=== PATIENT | female | born 1940 | race Caucasian/White ===

== ENCOUNTER 2021-07-15 06:30 | Day surgery (SDC) | payer MEDICARE ==
[~2021-07-15] VITALS: Ht 152.4 cm; Wt 68.1 kg
[2021-07-15] MEDS ORDERED: LATANOPROST OP (07:19)
[2021-07-15] MEDS ORDERED: AMLODIPINE BESYLATE PO (07:19)
[2021-07-15] MEDS ORDERED: POTASSIUM PO (07:19)
[2021-07-15] MEDS ORDERED: normal saline 1000ml 1,000 ML IV SCH (07:20)
[2021-07-15 07:30] VITALS: BP 154/73
[2021-07-15] MEDS ORDERED: LIDOcaine 1% 30ml preserv. free vial IJ STA (09:26)
[2021-07-15] MEDS ORDERED: iohexol 300 MG/1 ML 50ml polymer ONE (10:28)
[2021-07-15] MEDS ORDERED: diphenhydrAMINE 50 mg/ml inj ONE (10:44)
[2021-07-15] MEDS ORDERED: fentaNYL/PF 50MCG/1 ML 2ML syringe ONE (10:55)
[2021-07-15 11:19] VITALS: BP 136/62
[2021-07-15 11:34] VITALS: BP 136/59
[2021-07-15 12:04] VITALS: BP 124/53
[2021-07-15 12:16] VITALS: BP 128/55
== END 2021-07-15 12:30 | disposition home or self-care (01) ==
LOC: SSTAY O 06:30 → EDSTATUS 08:30 → SSTAY O 12:30
PROVIDERS: ATTEND Preventive Medicine Aerospace Medicine
DX: Z43.6 Encounter for attention to other artificial openings of urinary tract (principal); Z20.822 Contact with and (suspected) exposure to COVID-19; Z85.51 Personal history of malignant neoplasm of bladder; Z98.890 Other specified postprocedural states
CPT/HCPCS: 50435; 87635; C1769; C2617; C9803; J1200; J3010; J7030; Q9967; 50387

== ENCOUNTER 2021-08-19 07:16 | Day surgery (SDC) | payer MEDICARE ==
[2021-08-12 14:57] LABS: BASOPHILS # (AUTO) 0.1 X10'3 (0-0.2); BASOPHILS % (AUTO) 0.2 % (0-1); EOSINOPHILS % (AUTO) 0.1 % (0-6); LYMPHOCYTES # (AUTO) 0.8 X10'3 (1.1-4.8); LYMPHOCYTES % (AUTO) 2.8 % (21-51); MEAN CORPUSCULAR HEMOGLOBIN 28.7 PG (27.0-31.0); MEAN CORPUSCULAR HGB CONC 33.3 g/dL (33.0-36.5); MEAN PLATELET VOLUME 7.4 FL (7.4-10.4); MONOCYTES # (AUTO) 0.2 X10'3 (0-0.9); MONOCYTES % (AUTO) 0.8 % (2-12); NEUTROPHILS # (AUTO) 27.6 X10'3 (1.8-7.7); NEUTROPHILS % (AUTO) 96.1 % (42-75); PRE OP HEMATOCRIT 22.7 % (35.0-45.0); PRE OP PLATELET COUNT 229 X10'3 (140-440); RED BLOOD COUNT 2.64 X10'6 (4.20-5.60); RED CELL DISTRIBUTION WIDTH 13.5 % (11.5-14.5)
[2021-08-12 15:05] LABS: PRE OP HEMOGLOBIN 7.6 g/dL (12.0-16.0)
[2021-08-12 15:11] LABS: ALBUMIN 2.9 G/DL (3.4-5.0); ALBUMIN/GLOBULIN RATIO 0.7 (1.1-1.5); ALKALINE PHOSPHATASE 108 IU/L (46-116); BLOOD UREA NITROGEN 19 MG/DL (7-18); BUN/CREATININE RATIO 20.4 (6.6-38.0); CALCIUM 9.1 MG/DL (8.5-10.1); CHLORIDE 103 MMOL/L (99-107); CREATININE 0.93 MG/DL (0.40-0.90); PRE OP ALT 49 U/L (30-65); PRE OP ANION GAP 14 (8-16); PRE OP AST 38 U/L (10-37); PRE OP BILIRUB, TOTAL 0.3 MG/DL (0.0-1.0); PRE OP GLUCOSE 101 MG/DL (70-104); PRE OP SODIUM 140 MMOL/L (135-145); TOTAL CARBON DIOXIDE 23.2 MMOL/L (24-32); TOTAL PROTEIN 7.1 G/DL (6.4-8.2); eGFR 58 ML/MIN
[2021-08-12 15:25] LABS: TOTAL CELLS COUNTED 100
[2021-08-12 15:26] LABS: HYPERSEGMENTED NEUTROPHILS 2+
[2021-08-12 15:32] LABS: PLATELET ESTIMATE NORMAL; ROULEAUX 1+; TOXIC GRANULATION 1+
[2021-08-19] VITALS (11 sets, daily range): BP systolic 113–151; BP diastolic 57–70
[~2021-08-19] VITALS: Ht 152.4 cm; Wt 66.0 kg
[~2021-08-19 07:16] MED LIST: AMLO5TAB16 PO; ONDA-104 PO; POTA-192 PO; PROC10TA10 PO; famotidine 20mg tablet PO ONE; ringers solution, lacted 1,000 ML IV SCH
[2021-08-19] MEDS ORDERED: ceFAZolin 2gm in dextrose, iso 50 ML IV ONE (07:35)
[2021-08-19] MEDS ORDERED: morphine 2 MG/ML inj. syringe IV PRN (09:35)
[2021-08-19] MEDS ORDERED: hydrALAZINE 20mg/ml inj. IV PRN (09:35)
[2021-08-19] MEDS ORDERED: morphine 4 MG/ML inj SYRINge IV PRN (09:35)
[2021-08-19] MEDS ORDERED: ringers solution, lacted 1,000 ML IV SCH (09:35)
[2021-08-19] MEDS ORDERED: fentaNYL/PF 50MCG/1 ML 2ML syringe IV PRN ×2 (09:35)
[2021-08-19] MEDS ORDERED: ondansetron/PF 4mg/2ml inj IV PRN (09:35)
[2021-08-19] MEDS ORDERED: labetalol 20mg/4ml (5mg/ml) syringe IV PRN (09:35)
[2021-08-19] MEDS ORDERED: iohexol 300 MG/1 ML 50ml polymer ONE (11:38)
[2021-08-19] MEDS ORDERED: midazolam 1 mg/ML 2ml injection ONE (11:55)
[2021-08-19] MEDS ORDERED: FENTANYL CITRATE/PF 50 MCG/1 ML VIAL ONE (11:55)
[2021-08-19] MEDS ORDERED: LIDOcaine 2% (20mg/ml) 5ml vial ONE (12:02)
[2021-08-19] MEDS ORDERED: ondansetron/PF 4mg/2ml inj ONE (12:02)
[2021-08-19] MEDS ORDERED: propofol inj 20 ML IV ONE (12:02)
--- NOTE | 2021-08-19 12:51 | NUR ---
Received from OR via [facility] , accompanied by Anesthesiologist DR ARNOLD and report given by Anesthesiolgist. PT PRESENTS WITH 20G LEFT AC, VSS. Addendum: 08/19/21 at 1302 by Keyla Pierre RN, RN Amended: Links added.
--- NOTE | 2021-08-19 14:01 | NUR ---
PATIENT HAS MET ALL CRITERIA FOR DC. IV DC'D WITH CATHEER INTACT. DC INSTRUCTIONS REVIEWED WITH PT, PT VERBALIZED UNDERSTANDING WITH NO FURTHER QUESTIONS AT THIS TIME. PT WHEELED OUT OF HOSPITAL WHERE DROVE PT HOME. Addendum: 08/19/21 at 1536 by Keyla Pierre RN, RN Amended: Links added.
== END 2021-08-19 14:01 | disposition home or self-care (01) ==
LOC: PAS 07:16
PROVIDERS: ATTEND Urology
DX: N13.39 Other hydronephrosis (principal); C67.8 Malignant neoplasm of overlapping sites of bladder; I10 Essential (primary) hypertension; E66.9 Obesity, unspecified; Z68.28 Body mass index [BMI] 28.0-28.9, adult; Z87.891 Personal history of nicotine dependence; Z20.822 Contact with and (suspected) exposure to COVID-19; Z88.5 Allergy status to narcotic agent; Z98.890 Other specified postprocedural states; Z79.899 Other long term (current) drug therapy
CPT/HCPCS: 36415; 50389; 52332; 74420; 80053; 82948; 85025; 93005; C1758; C1769; C2617; J2250; J2405; J2704; J3010; J3490; J7030; J7120; Q9967; U0003; U0005; Z7506; Z7508; Z7512; 76000; 85007; A4618